=== PATIENT | male | born 1995 | race Caucasian/White ===

== ENCOUNTER 2019-01-25 23:10 | Emergency (ER) | payer SELFPAY ==
[~2019-01-25] VITALS: Ht 170.2 cm; Wt 91.0 kg
[2019-01-25] MEDS ORDERED: KETOROLAC 30MG/ML VIAL IM ONE (23:45)
[2019-01-26] MEDS ORDERED: HYDROCODONE/ACETAMINOPHEN 5/325MG TABLET PO ONE (02:30)
[2019-01-26 02:39] VITALS: BP 108/69
== END 2019-01-26 02:41 | disposition home or self-care (01) ==
LOC: ER 23:10
DX: M25.571 Pain in right ankle and joints of right foot (principal); M25.531 Pain in right wrist; F17.200 Nicotine dependence, unspecified, uncomplicated; Z98.890 Other specified postprocedural states; Z88.2 Allergy status to sulfonamides
CPT/HCPCS: 73110; 73610; 73630; 96372; 99283; J1885

== ENCOUNTER 2019-08-09 01:22 | Emergency (ER) | payer MEDICAID ==
[~2019-08-09] VITALS: Ht 172.7 cm; Wt 95.0 kg
[2019-08-09 01:32] VITALS: BP 130/81
== END 2019-08-09 02:22 | disposition home or self-care (01) ==
LOC: ER 01:22
DX: T63.391A Toxic effect of venom of other spider, accidental (unintentional), initial encounter (principal); Z88.2 Allergy status to sulfonamides; Z98.890 Other specified postprocedural states; Y92.89 Other specified places as the place of occurrence of the external cause
CPT/HCPCS: 99282; 99283